=== PATIENT | female | born 2000 | race Caucasian/White ===

== ENCOUNTER 2022-07-24 17:05 | Emergency (ER) | payer MEDICAID ==
[~2022-07-24] VITALS: Ht 162.6 cm; Wt 117.9 kg
[2022-07-24] MEDS ORDERED: MORPHINE 4 MG INJ. 4 MG/ML VIAL ONE (17:15)
[2022-07-24 17:39] VITALS: BP_SYST 132
--- NOTE | 2022-07-24 17:42 | NUR ---
Patient triaged and placed in waiting room. VSS and patient appears in no acute distress at this time. Accompanied by MOTHER, awaiting available bed, and MD notified of need for MSE.
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
--- NOTE | 2022-07-24 19:52 | NUR ---
PT DENIES AT THIS TIME. PT REFUSES TO WAIT FOR HCG TEST BEFORE RADIOLOGY. DR. POWELL MADE AWARE AND APPROVED OF IMAGING BEFORE NEGATIVE URINE PREG.
[2022-07-24] MEDS ORDERED: NAPR-1172 PO ×2 (21:24→21:26)
== END 2022-07-24 21:28 | disposition home or self-care (01) ==
LOC: SED 17:05
DX: S93.402A Sprain of unspecified ligament of left ankle, initial encounter (principal); S63.501A Unspecified sprain of right wrist, initial encounter; S60.222A Contusion of left hand, initial encounter; S70.01XA Contusion of right hip, initial encounter; Z88.0 Allergy status to penicillin; Z88.1 Allergy status to other antibiotic agents; Z79.899 Other long term (current) drug therapy; W19.XXXA Unspecified fall, initial encounter; Y93.89 Activity, other specified; Y92.89 Other specified places as the place of occurrence of the external cause; Y99.8 Other external cause status
CPT/HCPCS: 70450-TC; 73502; 76376; 99284; J2270

== ENCOUNTER 2023-01-11 20:46 | Emergency (ER) | payer MEDICAID ==
[~2023-01-11] VITALS: Ht 162.6 cm; Wt 90.7 kg
[~2023-01-11 20:46] MED LIST: NAPR-1172 PO
[2023-01-11 20:58] VITALS: BP_SYST 147
--- NOTE | 2023-01-11 21:14 | NUR ---
Patient to ER bed 08 to gown for evaluation. Side rails up. Report given to MISTI GEIGER
--- NOTE | 2023-01-11 21:25 | NUR ---
PATIENT PRESENTS WITH GENERALIZED BODY ACHE AND RECTAL BLEEDING WHEN ATTEMPTING TO HAVE BOWEL MOVEMENT, NO HEMMOIDS NOTED ON RECTAL EXAM, NO BLOOD NOTED NEAR OR ON RECTUM, INSTUCTED TO GIVE URINE SAMPLE AT THIS TIME
[2023-01-11 22:46] LABS: BILIRUBIN,URINE 2+ (NEGATIVE); BLOOD, URINE 2+ (NEGATIVE); CLARITY/URINE CLEAR (CLEAR); COLOR,URINE YELLOW (YELLOW); GLUCOSE,URINE NEGATIVE (NEGATIVE); KETONES,URINE TRACE (NEGATIVE); LEUKOCYTE ESTERASE ,URINE NEGATIVE (NEGATIVE); NITRITE, URINE NEGATIVE (NEGATIVE); PROTEIN URINE TRACE (NEGATIVE); UROBILINOGEN,URINE 0.2 (0.2-1.0)
[2023-01-11 22:52] LABS: CALCIUM 8.8 mg/dL (8.4-11.0); CREATININE 0.94 mg/dL (0.55-1.30)
[2023-01-11 22:53] LABS: BASOPHILS % (AUTO) 0.3 % (0.0-2.0); EOSINOPHILS # (AUTO) 0.3 K/uL (0.0-0.4); EOSINOPHILS % (AUTO) 2.5 % (0.0-4.0); HEMATOCRIT 35.3 % (36-48); HEMOGLOBIN 11.2 g/dL (12.0-16.0); LYMPHOCYTES # (AUTO) 1.5 K/uL (1.0-5.5); LYMPHOCYTES % (AUTO) 11.4 % (20.5-51.5); MEAN CORPUSCULAR HEMOGLOBIN 24 pg (27-31); MEAN CORPUSCULAR HGB CONC 32 % (32-36); MEAN CORPUSCULAR VOLUME 76 fL (79.0-98.0); MONOCYTES # (AUTO) 0.9 K/uL (0.0-1.0); MONOCYTES % (AUTO) 7.3 % (1.7-9.3); NEUTROPHILS # (AUTO) 10.1 K/uL (1.8-7.7); NEUTROPHILS % (AUTO) 78.5 % (40.0-70.0); PLATELET COUNT (AUTO) 582 K/uL (130-430); RED BLOOD CELL COUNT(AUTO) 4.63 MIL/uL (4.2-6.2); RED CELL DISTRIBUTION WIDTH 16.3 % (9.0-15.0); WHITE BLOOD COUNT (AUTO) 12.9 K/uL (4.8-10.8)
[2023-01-11 22:57] LABS: ALBUMIN 3.7 g/dL (3.4-4.8); TOTAL BILIRUBIN 0.4 mg/dL (0.0-1.0)
[2023-01-11 23:01] LABS: BACTERIA,URINE RARE /HPF (None Seen)
[2023-01-12 00:48] VITALS: BP_SYST 124
== END 2023-01-12 00:48 | disposition home or self-care (01) ==
LOC: SED 20:46
DX: K62.5 Hemorrhage of anus and rectum (principal); R53.1 Weakness; Z88.0 Allergy status to penicillin; Z88.1 Allergy status to other antibiotic agents; Z79.899 Other long term (current) drug therapy
CPT/HCPCS: 36415; 76376; 80053; 81000; 85025; 86886; 86900; 86901; 99284